=== PATIENT | male | born 1960 | race Caucasian/White ===

== ENCOUNTER 2019-06-29 14:31 | Inpatient (IN) | payer OTHER ==
[2019-06-29 18:09] VITALS: BMI 23.8
--- NOTE | 2019-06-29 19:44 | HP ---
CIWA Score Nausea/Vomitin Muscle Tremors: 4-Moderate,w/Arms Extend Anxiety: 4-Mod. Anxious/Guarded Agitation: 4-Moderately Restless Paroxysmal Sweats: 2 Orientation: 2-Disoriented Date<2 days Tacttile Disturbances: 2-Mild Itch/Numbness/Burn Auditory Disturbances: 0-None Visual Disturbances: 0-None Headache: 2-Mild CIWA-Ar Total Score: 22 - Admission Criteria OASAS Guidelines: Admission for Medically Managed Detox: Requires at least one of the followin. CIWA greater than 12 2. Seizures within the past 24 hours 3. Delirium tremens within the past 24 hours 4. Hallucinations within the past 24 hours 5. Acute intervention needed for co occurring medical disorder 6. Acute intervention needed for co occurring psychiatric disorder 7. Severe withdrawal that cannot be handled at a lower level of care (continued vomiting, continued diarrhea, abnormal vital signs) requiring intravenous medication and/or fluids 8. Admission [facility] Allergies/Adverse Reactions: Allergies Allergy/AdvReac Type Severity Reaction Status Date / Time fish derived Allergy Severe Hives Verified 10/31/14 16:24 shellfish derived Allergy Severe Hives Verified 10/31/14 16:24 Penicillins Allergy Swelling Verified 06/29/19 18:03 seafood Allergy Severe Hives Uncoded 10/31/14 15:41 History of Present Illness: 58 y.o. male w/ heroin , etoh and cocaine use , reports heroin since age 16 , intermittent sobriety , longest sobriety while in [facility] , left in 2015 , MDD 100 mg, voluntarily left , relapsed , using 10 bags/day via inhalation until 1 mo ago , went to detox @ [facility] , has not relapsed since d/c . ETOH - first age of use 16 , heavily since 2 weeks ago , current daily use 2 pints/day , starts drinking in the mornings , reports tremors if not drinking , chills, sweating, latest use yesterday , current symptoms as above , + blackouts, denies seizures , + falls while intoxicated , most recently 3 days ago , fell on knees , denies current complaints . cocaine : 100 $ /day via inhalation since age 16 , denies significant period of sobriety tobacco : 1 ppd x 35 years , not interested in smoking cessation . PMHX : Hep C s/p tx 2016 . PSHX : umbil hernia 2016 PSYCh : depression on meds from psych [facility] since Jun 2018 . Suicide attempt 2015 by cutting w/ knife . Has letter from [facility] and meds 06/09/19 . SHx : lives in [facility] housing in [place] since Jun 2018 , finances habit through illicit activities such as shoplifting , denies current legal issues . Exam Limitations: Clinical Condition - Ebola screening Have you traveled outside of the country in the last 21 days: No (N) Have you had contact with anyone from an Ebola affected area: No Do you have a fever: No - Review of Systems Constitutional: See HPI, Loss of Appetite EENT: reports: Other (glasses edentulous , denies dysphagia) Respiratory: reports: No Symptoms reported Cardiac: reports: No Symptoms Reported GI: reports: See HPI : reports: Other (at times difficulty starting to urinate , has not seen urology , states planning to go .) Musculoskeletal: reports: No Symptoms Reported Integumentary: reports: No Symptoms Reported Neuro: reports: Headache, Tremors Endocrine: reports: No Symptoms Reported Psychiatric: reports: Orientated x3, Agitated, Anxious, Depressed Patient History - Patient Medical History Hx Anemia: No Hx Asthma: No Hx Chronic Obstructive Pulmonary Disease (COPD): No Hx Cancer: No Hx Cardiac Disorders: No Hx Congestive Heart Failure: No Hx Hypertension: No Hx Hypercholesterolemia: No Hx Pacemaker: No HX Cerebrovascular Accident: No Hx Seizures: No Hx Dementia: No Hx Diabetes: No Hx Gastrointestinal Disorders: No Hx Liver Disease: Yes (cirrohosis of liver) Hx Genitourinary Disorders: No Hx Sexually Transmitted Disorders: No Hx Renal Disease (ESRD): No Hx Thyroid Disease: No Hx Human Immunodeficiency Virus (HIV): No (negative) Hx Hepatitis C: Yes (diagnosed a yr ago) Hx Depression: Yes Hx Suicide Attempt: No Hx Bipolar Disorder: No Hx Schizophrenia: No - Patient Surgical History Past Surgical History: Yes Hx Neurologic Surgery: No Hx Cataract Extraction: No Hx Cardiac Surgery: No Hx Lung Surgery: No Hx Breast Surgery: No Hx Breast Biopsy: No Hx Abdominal Surgery: Yes (umbilical hernia sx with mesh 2yrs ago) Hx Appendectomy: No Hx Cholecystectomy: No Hx Genitourinary Surgery: No Hx Section: No Hx Orthopedic Surgery: Yes (fusion of S1-S2 2yrs ago) - PPD History Date: 11/02/14 - Smoking Cessation Smoking history: Current every day smoker Have you smoked in the past 12 months: Yes Aproximately how many cigarettes per day: 20 Hx Chewing Tobacco Use: No Initiated information on smoking cessation: No - Substances abused Alcohol Substance route: Oral Frequency: Daily Amount used: 1 pint of Rum Age of first use: 16 Date of last use: 06/28/19 Cocaine Other (specify): sniff Frequency: Daily Amount used: $100 Age of first use: 16 Date of last use: 06/27/19 Admission Physical Exam BHS - Vital Signs Vital Signs: Vital Signs - 24 hr 06/29/19 18:05 Temperature 96.9 F L Pulse Rate 80 Respiratory 19 Rate Blood Pressure 121/73 - Physical General Appearance: Yes: Mild Distress, Moderate Distress, Tremorous, Anxious HEENTM: Yes: EOMI, Hearing grossly Normal, Normocephalic, Normal Voice, Other ( scr right anterior neck from prior suicide attempt 2015) Respiratory: Yes: Lungs Clear, Normal Breath Sounds, No Respiratory Distress, No Accessory Muscle Use Neck: Yes: No masses,lesions,Nodules, Trachea in good position Cardiology: Yes: Regular Rhythm, Regular Rate, S1, S2 Abdominal: Yes: Non Tender, Soft, Protuberent Genitourinary: Yes: Hesitency Musculoskeletal: Yes: full range of Motion, Gait Steady Extremities: Yes: Normal Range of Motion, Non-Tender, Tremors Neurological: Yes: Fully Oriented, Alert, Motor Strength 5/5 Integumentary: Yes: Warm, Other (nicotine staining on fingertips) - Diagnostic (1) Cocaine dependence Current Visit: Yes Status: Chronic Qualifiers: Substance use status: uncomplicated Qualified Code(s): F14.20 - Cocaine dependence, uncomplicated (2) Alcohol dependence Current Visit: Yes Status: Chronic Qualifiers: Substance use status: in withdrawal (3) Nicotine dependence Current Visit: Yes Status: Chronic Qualifiers: Nicotine product type: cigarettes Inpatient Rehab Admission - Rehab Decision to Admit Inpatient rehab admission?: No
[2019-06-29] MEDS ORDERED: BISMUTH SUBSALICYLATE 524 MG/30 ML UD PO PRN (19:58)
[2019-06-29] MEDS ORDERED: MAGNESIUM HYDROX 2400MG/30ML ORAL SUSPENSION 30 ML CUP PO PRN (19:58)
[2019-06-29] MEDS ORDERED: MENTHOL/PHENOL 1 EACH UD MM PRN (19:58)
[2019-06-29] MEDS ORDERED: ACETAMINOPHEN 325 MG TABLET (FP) PO PRN ×2 (19:58)
[2019-06-29] MEDS ORDERED: IBUPROFEN 400 MG TABLET (FP) PO PRN (19:58)
[2019-06-29] MEDS ORDERED: hydrOXYzine PAMOATE 25 MG CAPSULE (FP) PO PRN (19:58)
[2019-06-29] MEDS ORDERED: traZODone HCL 100 MG TABLET (FP) PO PRN (19:58)
[2019-06-29] MEDS ORDERED: MELATONIN 5 MG TABLETS PO PRN (19:58)
[2019-06-29] MEDS ORDERED: NICOTINE POLACRILEX 2 MG GUM BUC PRN (19:58)
[2019-06-29] MEDS ORDERED: MAG HYDROX/AL HYDROX/SIMETH 30 ML UNIT-DOSE CUP PO PRN (19:58)
[2019-06-29] MEDS ORDERED: MAGNESIUM CITRATE 300 ML BOTTLE PO PRN (19:58)
[2019-06-29] MEDS ORDERED: chlordiazePOXIDE HCL 10 MG CAPSULE PO PRN (20:01)
[2019-06-29] MEDS: THIAMINE HCL 100 MG TABLET (FP) PO SCH (21:17)
[2019-06-29] MEDS: chlordiazePOXIDE HCL 25 MG CAPSULE PO SCH (21:17)
[2019-06-30] MEDS: chlordiazePOXIDE HCL 25 MG CAPSULE PO SCH ×3 (06:50→21:47)
[2019-06-30] MEDS: PRENATAL VITAMINS W/ FOLIC ACID TABLET (FP) PO SCH (10:53)
--- NOTE | 2019-06-30 11:09 | PN ---
S CIWA - CIWA Score Nausea/Vomitin-Mild Nausea/No Vomiting Muscle Tremors: 4-Moderate,w/Arms Extend Anxiety: 4-Mod. Anxious/Guarded Agitation: 4-Moderately Restless Paroxysmal Sweats: 2 Orientation: 0-Oriented Tacttile Disturbances: 0-None Auditory Disturbances: 0-None Visual Disturbances: 0-None Headache: 2-Mild CIWA-Ar Total Score: 17 BHS Progress Note (SOAP) Subjective: 58 years old male 3rd patient [facility] admission since 2010 doing well with librium detox regimen sleep better at night ambulating on hallway social with peer in day room less tremor irritable at times Objective: 06/30/19 11:11 Vital Signs Temperature 97.4 F L 06/30/19 09:22 Pulse Rate 97 H 06/30/19 09:22 Respiratory Rate 18 06/30/19 09:22 Blood Pressure 112/78 06/30/19 09:22 O2 Sat by Pulse Oximetry (%) 06/30/19 11:11 lab pending Assessment: 06/30/19 11:12 alcohol withdrawal sx Plan: continue librium detox regimen
[2019-06-30 12:24] LABS: HEMATOCRIT 45.1 % (35.4-49); MCH 31.1 pg (25.7-33.7); MCHC 33.3 g/dl (32.0-35.9); MEAN CELL VOLUME 93.2 fl (80-96); PLATELET COUNT 128 K/MM3 (134-434); RBC 4.84 M/mm3 (4.00-5.60); RDW 14.5 % (11.9-15.9); WHITE BLOOD COUNT 5.6 K/mm3 (4.0-10.0)
[2019-06-30 12:37] LABS: ALBUMIN 3.9 g/dl (3.4-5.0); BILIRUBIN,TOTAL 0.4 mg/dL (0.2-1); BLOOD UREA NITROGEN 17.8 mg/dL (7-18); CALCIUM 9.2 mg/dL (8.5-10.1); POTASSIUM 4.6 mmol/L (3.5-5.1); TOT PROT 7.1 g/dl (6.4-8.2)
--- NOTE | 2019-06-30 17:17 | CONSULT ---
[facility] Psychiatric Consult - Data Date of interview: 06/30/19 Admission source: [facility] Identifying data: Readmission to [facility] for this 58 y/o male self- referred for detoxification(cocaine, heroin, alcohol). Examined at [address] [place] [address]. Patient is single, no dependents, domiciled, unemployed and supported on welfare. Substance Abuse History: Discussed with the patient in this interview. Details in current [facility] repor as follows : Smoking history: Current every day smoker. Have you smoked in the past 12 months: Yes. Aproximately how many cigarettes per day: 20. Hx Chewing Tobacco Use: No. Initiated information on smoking cessation: No. - Substances abused. Alcohol. Substance route: Oral. Frequency: Daily. Amount used: 1 pint of Rum. Age of first use: 16. Date of last use: 06/28/19. Cocaine. Other (specify): sniff. Frequency: Daily. Amount used: $100. Age of first use: 16. Date of last use: 06/27/19 Medical History: Medical profile is remarkable for surgical fusion of S1-S2, cirrhosis of liver, hepatitis C, thrombocytopenia and history of umbilical herniorraphy. Psychiatric History: Patient admits to a history of multiple psychiatric hospitalizations ([facility], [facility], [facility]). Diagnosed with MDD (1976). Revised to Schizoaffective Disorder. Mr Azul reports psychiatric OPD services at the [facility]. Has poor recall of his psychotropic medications. Used to be on methadone maintenance at [facility] (dropped out in 2016). Records indicate trazodone + quetiapine. Onset of psychiatric disturbances : age 14. Patient reports one serious suicide attempt via self-mutilation (slashed his throat) in 2016. Physical/Sexual Abuse/Trauma History: Patient denies. Additional Comment: No toxicology for review. Mental Status Exam - Mental Status Exam Alert and Oriented to: Time, Place, Person Cognitive Function: Good Patient Appearance: Well Groomed Mood: Nervous, Withdrawn Affect: Mood Congruent, Constricted Patient Behavior: Fatigued, Cooperative Speech Pattern: Clear, Appropriate Voice Loudness: Normal Thought Process: Goal Oriented Thought Disorder: Not Present Hallucinations: Denies Suicidal Ideation: Denies Homicidal Ideation: Denies Insight/Judgement: Poor Sleep: Poorly, Difficulty falling asleep Appetite: Good Muscle strength/Tone: Normal Gait/Station: Normal Psychiatric Findings - Problem List ([place] 1, 2,3) (1) Alcohol dependence Current Visit: Yes Status: Chronic Qualifiers: Substance use status: in withdrawal (2) Cocaine dependence Current Visit: Yes Status: Chronic Qualifiers: Substance use status: uncomplicated Qualified Code(s): F14.20 - Cocaine dependence, uncomplicated (3) Nicotine dependence Current Visit: Yes Status: Chronic Qualifiers: Nicotine product type: cigarettes (4) Substance induced mood disorder Current Visit: Yes Status: Chronic (5) Schizoaffective disorder Current Visit: Yes Status: Chronic Comment: By history. (6) Insomnia Current Visit: Yes Status: Chronic - Initial Treatment Plan Initial Treatment Plan: Psychoeducation. Sleep hygiene. Detoxification. Support. AA/NA meetings. Medications verified via visual inspection of bottles brought by the patient. Seen : trazodone 200 mg/hs (reduced to 100 mg po hs) + prazosin 1 mg/hs (resumed) + olanzapine 15 mg/hs (resumed) + zoloft 100 mg/day ( resumed). Respective dates : 05/31/19 + 06/09/19 + 06/17/19 + 05/31/19. Side effects /benefits of each medication are discussed with the patient. Mr Azul is in agreement with this plan of care. Observation.
[2019-06-30] MEDS: OLANZapine 7.5 MG TABLET PO SCH (21:47)
[2019-06-30] MEDS: THIAMINE HCL 100 MG TABLET (FP) PO SCH (21:47)
[2019-06-30] MEDS: traZODone HCL 100 MG TABLET (FP) PO SCH (21:47)
[2019-06-30] MEDS: PRAZOSIN HCL 1 MG CAPSULE PO SCH (21:47)
[2019-07-01] MEDS: chlordiazePOXIDE 5 MG CAPSULE PO SCH ×3 (05:28→22:01)
[2019-07-01] MEDS: PRENATAL VITAMINS W/ FOLIC ACID TABLET (FP) PO SCH (10:15)
[2019-07-01] MEDS: SERTRALINE HCL 50 MG TABLET (FP) PO SCH (10:15)
--- NOTE | 2019-07-01 11:32 | PN ---
[facility] CIWA - CIWA Score Nausea/Vomitin-Mild Nausea/No Vomiting Muscle Tremors: 3 Anxiety: 2 Agitation: 4-Moderately Restless Paroxysmal Sweats: 2 Orientation: 0-Oriented Tacttile Disturbances: 0-None Auditory Disturbances: 0-None Visual Disturbances: 0-None Headache: 0-None Present CIWA-Ar Total Score: 12 S Progress Note (SOAP) Subjective: doing well with librium detox regimen seen by psychiatrist treated with trazodon prazosin syprexa and zoloft tolerate well resting on bed tremor sweat and irritable Objective: 07/01/19 11:31 Vital Signs Temperature 96.8 F L 07/01/19 09:17 Pulse Rate 73 07/01/19 09:17 Respiratory Rate 16 07/01/19 09:17 Blood Pressure 106/63 07/01/19 09:17 O2 Sat by Pulse Oximetry (%) Laboratory Last Values WBC 5.6 K/mm3 (4.0-10.0) 06/30/19 08:35 RBC 4.84 M/mm3 (4.00-5.60) 06/30/19 08:35 Hgb 15.0 GM/dL (11.7-16.9) 06/30/19 08:35 Hct 45.1 % (35.4-49) 06/30/19 08:35 MCV 93.2 fl (80-96) 06/30/19 08:35 MCH 31.1 pg (25.7-33.7) 06/30/19 08:35 MCHC 33.3 g/dl (32.0-35.9) 06/30/19 08:35 RDW 14.5 % (11.9-15.9) 06/30/19 08:35 Plt Count 128 K/MM3 (134-434) L 06/30/19 08:35 MPV 10.0 fl (7.5-11.1) 06/30/19 08:35 Sodium 142 mmol/L (136-145) 06/30/19 08:35 Potassium 4.6 mmol/L (3.5-5.1) 06/30/19 08:35 Chloride 108 mmol/L (98-107) H 06/30/19 08:35 Carbon Dioxide 29 mmol/L (21-32) 06/30/19 08:35 Anion Gap 5 MMOL/L (8-16) L 06/30/19 08:35 BUN 17.8 mg/dL (7-18) 06/30/19 08:35 Creatinine 1.0 mg/dL (0.55-1.3) 06/30/19 08:35 Est GFR (CKD-EPI)AfAm 95.06 06/30/19 08:35 Est GFR (CKD-EPI)NonAf 82.02 06/30/19 08:35 Random Glucose 105 mg/dL (74-106) 06/30/19 08:35 Calcium 9.2 mg/dL (8.5-10.1) 06/30/19 08:35 Total Bilirubin 0.4 mg/dL (0.2-1) 06/30/19 08:35 AST 23 U/L (15-37) 06/30/19 08:35 ALT 16 U/L (13-61) 06/30/19 08:35 Alkaline Phosphatase 64 U/L (45-117) 06/30/19 08:35 Total Protein 7.1 g/dl (6.4-8.2) 06/30/19 08:35 Albumin 3.9 g/dl (3.4-5.0) 06/30/19 08:35 RPR Titer Nonreactive (NONREACTIVE) 06/30/19 08:35 lab noted Assessment: 07/01/19 11:31 alcohol withdrawal sx Plan: continue librium detox regimen
[2019-07-01] MEDS: traZODone HCL 100 MG TABLET (FP) PO SCH (22:01)
[2019-07-01] MEDS: OLANZapine 7.5 MG TABLET PO SCH (22:01)
[2019-07-01] MEDS: PRAZOSIN HCL 1 MG CAPSULE PO SCH (22:01)
[2019-07-01] MEDS: THIAMINE HCL 100 MG TABLET (FP) PO SCH (22:01)
[2019-07-02] MEDS ORDERED: chlordiazePOXIDE HCL 10 MG CAPSULE PO PRN
[2019-07-02] MEDS: chlordiazePOXIDE HCL 10 MG CAPSULE PO SCH ×3 (06:02→22:11)
[2019-07-02] MEDS ORDERED: METHOCARBAMOL 500 MG TABLET PO PRN (10:25)
[2019-07-02] MEDS: SERTRALINE HCL 50 MG TABLET (FP) PO SCH (10:51)
[2019-07-02] MEDS: PRENATAL VITAMINS W/ FOLIC ACID TABLET (FP) PO SCH (10:52)
[2019-07-02] MEDS ORDERED: NICOTINE 21 MG/24 HOURS TOPICAL PATCH TD SCH (11:00)
--- NOTE | 2019-07-02 16:44 | PN ---
[facility] CIWA - CIWA Score Nausea/Vomitin-No Nausea/No Vomiting Muscle Tremors: 3 Anxiety: 3 Agitation: 2 Paroxysmal Sweats: 3 Orientation: 0-Oriented Tacttile Disturbances: 0-None Auditory Disturbances: 0-None Visual Disturbances: 0-None Headache: 0-None Present CIWA-Ar Total Score: 11 S Progress Note (SOAP) Subjective: Tremors, Anxious, Interrupted Sleep. Objective: PATIENT A & O X 3, OBSERVED AMBULATING ON DETOX UNIT UNASSISTED. IN NO ACUTE DISTRESS. 07/02/19 16:42 Vital Signs Temperature 99.2 F 07/02/19 13:10 Pulse Rate 79 07/02/19 13:10 Respiratory Rate 18 07/02/19 13:10 Blood Pressure 118/75 07/02/19 13:10 O2 Sat by Pulse Oximetry (%) Laboratory Tests 06/30/19 06/30/19 06/30/19 08:35 08:35 08:35 WBC 5.6 RBC 4.84 Hgb 15.0 Hct 45.1 MCV 93.2 MCH 31.1 MCHC 33.3 RDW 14.5 Plt Count 128 L MPV 10.0 Sodium 142 Potassium 4.6 Chloride 108 H Carbon Dioxide 29 Anion Gap 5 L BUN 17.8 Creatinine 1.0 Est GFR (CKD-EPI)AfAm 95.06 Est GFR (CKD-EPI)NonAf 82.02 Random Glucose 105 Calcium 9.2 Total Bilirubin 0.4 AST 23 ALT 16 Alkaline Phosphatase 64 Total Protein 7.1 Albumin 3.9 RPR Titer Nonreactive LABS NOTED RESULTS OF DETOX ADMISSION QFT /TB TEST PENDING. PATIENT HAS HAD LOW PLATELET LEVELS ON PREVIOUS ADMISSIONS. 07/02/19 16:42 Assessment: 07/02/19 16:42 WITHDRAWAL SYMPTOMS. THROMBOCYTOPENIA. Plan: CONTINUE DETOX. PATIENT SCHEDULED FOR D/C FROM DETOX UNIT TOMORROW.
[2019-07-02] MEDS: THIAMINE HCL 100 MG TABLET (FP) PO SCH (22:10)
[2019-07-02] MEDS: traZODone HCL 100 MG TABLET (FP) PO SCH (22:11)
[2019-07-02] MEDS: PRAZOSIN HCL 1 MG CAPSULE PO SCH (22:11)
[2019-07-02] MEDS: OLANZapine 7.5 MG TABLET PO SCH (22:11)
[2019-07-03] MEDS ORDERED: chlordiazePOXIDE HCL 10 MG CAPSULE PO ONE (05:00)
[2019-07-03 09:35] VITALS: BP 114/79; PULSE 85; TEMP 96.9
--- NOTE | 2019-07-03 18:39 | DS ---
[facility] Detox Discharge Summary Admission Date: 06/29/19 Discharge Date: 07/03/19 - History Present History: Alcohol Dependence, Cocaine Dependence Additional Comments: PATIENT GOING TO [facility] ([place], [place]) FOR AFTERCARE. PATIENT WAS DISCHARGED FORM DETOX UNIT IN STABLE MEDICAL CONDITION. Pertinent Past History: Depression, History of Umbilical Hernia Repair, Nicotine Dependence, Hep C ( Treated), Cirrhosis Of Liver, Schizoaffective Disorder, Insomnia, Thrombocytopenia. - Physical Exam Results Vital Signs: Vital Signs Temperature 96.9 F L 07/03/19 09:35 Pulse Rate 85 07/03/19 09:35 Respiratory Rate 18 07/03/19 09:35 Blood Pressure 114/79 07/03/19 09:35 O2 Sat by Pulse Oximetry (%) Pertinent Admission Physical Exam Findings: WITHDRAWAL SYMPTOMS. Laboratory Tests 06/30/19 06/30/19 06/30/19 08:35 08:35 08:35 WBC 5.6 RBC 4.84 Hgb 15.0 Hct 45.1 MCV 93.2 MCH 31.1 MCHC 33.3 RDW 14.5 Plt Count 128 L MPV 10.0 Sodium 142 Potassium 4.6 Chloride 108 H Carbon Dioxide 29 Anion Gap 5 L BUN 17.8 Creatinine 1.0 Est GFR (CKD-EPI)AfAm 95.06 Est GFR (CKD-EPI)NonAf 82.02 Random Glucose 105 Calcium 9.2 Total Bilirubin 0.4 AST 23 ALT 16 Alkaline Phosphatase 64 Total Protein 7.1 Albumin 3.9 RPR Titer TB (QFT) Incubation TB Test (QFT) Nil 0.03 TB Test (QFT) Mitogen >10.00 TB Test (QFT) Antigen 0.26 TB Test (QFT) Negative TB Positive Criteria 06/30/19 08:35 WBC RBC Hgb Hct MCV MCH MCHC RDW Plt Count MPV Sodium Potassium Chloride Carbon Dioxide Anion Gap BUN Creatinine Est GFR (CKD-EPI)AfAm Est GFR (CKD-EPI)NonAf Random Glucose Calcium Total Bilirubin AST ALT Alkaline Phosphatase Total Protein Albumin RPR Titer Nonreactive TB (QFT) Incubation TB Test (QFT) Nil TB Test (QFT) Mitogen TB Test (QFT) Antigen TB Test (QFT) TB Positive Criteria LABS NOTED. - Treatment Hospital Course: Detox Protocol Followed, Detoxed Safely, Responded well, Discharged Condition Good, Rehab Referral Accepted Patient has Accepted a Rehab Referral to: [facility] ([place], [place]). - Medication Discharge Medications: Ambulatory Orders Olanzapine 15 mg PO HS 06/29/19 Prazosin HCl 1 mg PO HS 06/29/19 Sertraline HCl [Zoloft] 100 mg PO DAILY 06/29/19 Trazodone HCl 300 mg PO HS 06/29/19 - Diagnosis (1) Alcohol dependence Status: Chronic Qualifiers: Substance use status: in withdrawal Complication of substance-induced condition: uncomplicated Qualified Code(s): F10.230 - Alcohol dependence with withdrawal, uncomplicated (2) Cocaine dependence Status: Chronic Qualifiers: Substance use status: uncomplicated Qualified Code(s): F14.20 - Cocaine dependence, uncomplicated (3) Insomnia Status: Chronic Qualifiers: Insomnia type: unspecified Qualified Code(s): G47.00 - Insomnia, unspecified (4) Nicotine dependence Status: Chronic Qualifiers: Nicotine product type: cigarettes Substance use status: uncomplicated Qualified Code(s): F17.210 - Nicotine dependence, cigarettes, uncomplicated (5) Schizoaffective disorder Status: Chronic Qualifiers: Schizoaffective disorder type: unspecified Qualified Code(s): F25.9 - Schizoaffective disorder, unspecified (6) Substance induced mood disorder Status: Chronic - AMA Did Patient Leave Against Medical Advice: No [facility] CIWA - CIWA Score Nausea/Vomitin-No Nausea/No Vomiting Muscle Tremors: None Anxiety: 2 Agitation: 2 Paroxysmal Sweats: No Perspiration Orientation: 0-Oriented Tacttile Disturbances: 0-None Auditory Disturbances: 0-None Visual Disturbances: 0-None Headache: 0-None Present CIWA-Ar Total Score: 4
== END 2019-07-03 11:25 | disposition home or self-care (01) | DRG 774 ==
LOC: YASAS 14:31 → Y3N 20:31
PROVIDERS: ADMIT Surgery; ATTEND Surgery
PROC: HZ2ZZZZ Detoxification Services for Substance Abuse Treatment (ICD-10-PCS; principal; 2019-06-29)
DX: F10.230 Alcohol dependence with withdrawal, uncomplicated (principal); F14.20 Cocaine dependence, uncomplicated; F17.210 Nicotine dependence, cigarettes, uncomplicated; F19.24 Other psychoactive substance dependence with psychoactive substance-induced mood disorder; F25.9 Schizoaffective disorder, unspecified; F32.9 Major depressive disorder, single episode, unspecified; D69.6 Thrombocytopenia, unspecified; K74.60 Unspecified cirrhosis of liver; B18.2 Chronic viral hepatitis C; Z88.0 Allergy status to penicillin; Z91.013 Allergy to seafood
CPT/HCPCS: 36415; 80053; 85027; 86480; 86593